=== PATIENT | female | born 1965 | race Two or more races ===

== ENCOUNTER 2016-07-22 16:37 | Emergency (ER) | payer OTHER ==
[~2016-07-22] VITALS: Ht 160 cm; Wt 95.7 kg
[~2016-07-22 16:37] MED LIST: ALB5IS NEB; ENA10T PO; FLUT250M2 IN; IPRA0.035 NEB; IPRASOL41 NEB; LEVO500T3 PO; METF-312 PO; PRED-188 PO
[2016-07-22 17:25] LABS: Basophils # (auto) 0.1 uL; Basophils % (auto) 0.5 % (0.0-2.0); Eosinophils # (auto) 0.3 uL; Eosinophils % (auto) 2.8 % (0.0-7.0); Hematocrit 44.9 % (36.0-46.0); Hemoglobin 15.1 g/dL (12.2-16.2); Lymphocytes # (auto) 3.5 uL; Lymphocytes % (auto) 34.4 % (10.0-50.0); Mean Corpuscular Hemoglobin 30.6 pg (28.0-32.0); Mean Corpuscular Hgb Conc. 33.7 g/dL (32.0-36.0); Mean Corpuscular Volume 90.8 fL (80.0-100.0); Mean Platelet Volume 9.1 fL (7.4-10.4); Monocytes # (auto) 0.8 uL; Monocytes % (auto) 8.3 % (0.0-12.0); Neutrophils # (auto) 5.5 uL; Platelet Count (auto) 288 10^3/uL (140-450); Red Cell Distribution Width 14.6 % (11.6-16.0); White Blood Cell 10.3 10^3/uL (4.4-10.8)
[2016-07-22 17:52] LABS: Albumin 4.1 g/dL (3.4-5.0); Alkaline Phosphatase 70 U/L (45-117); Anion Gap 11 (5-15); Aspartate Aminotransferase 26 U/L (15-37); Bilirubin, Total 0.5 mg/dL (0.2-1.0); Blood Urea Nitrogen 16 mg/dL (7-18); Calcium 9.1 mg/dL (8.5-10.1); Carbon Dioxide 23 mmol/L (21-32); Chloride 108 mmol/L (98-107); GFR African American 98 mL/min; GFR Non-African American 81 mL/min; Glucose 99 mg/dL (74-106); Potassium 3.7 mmol/L (3.5-5.1); Sodium 142 mmol/L (136-145); Total Protein 7.8 g/dL (6.4-8.2)
[2016-07-22 19:44] LABS: Urine Blood Negative /uL (Negative); Urine Ca Oxalate Crystal FEW (None Seen); Urine Color Yellow (Yellow); Urine Glucose Normal (Normal); Urine Ketone TRACE (Negative); Urine Mucus FEW (None Seen); Urine Nitrite Negative (Negative); Urine RBC 7 /hpf (0 - 4); Urine Squamous Epithelial Cell FEW /hpf (<5)
[2016-07-22] MEDS ORDERED: SODIUM CHLORIDE 0.9% 500 ML IVB ONE (19:44)
[2016-07-22] MEDS ORDERED: ONDANSETRON HCL 4 MG/2 ML VIAL IV ONE (19:45)
[2016-07-22] MEDS ORDERED: MORPHINE SULFATE 4 MG/ML SYRG IV ONE (19:45)
[2016-07-22 19:46] VITALS: BP 148/99
[2016-07-22] MEDS ORDERED: IOHEXOL 300 MG/ML 100ML BOTTLE IJ ONE (19:54)
[2016-07-22 20:10] LABS: Urine Bilirubin Negative (Negative)
[2016-07-22 20:12] LABS: Magnesium 2.4 mg/dL (1.6-2.6)
== END 2016-07-22 21:35 | disposition home or self-care (01) ==
LOC: ER 16:39
DX: N39.0 Urinary tract infection, site not specified (principal); J45.909 Unspecified asthma, uncomplicated; E11.9 Type 2 diabetes mellitus without complications; I10 Essential (primary) hypertension; F17.210 Nicotine dependence, cigarettes, uncomplicated; Z98.890 Other specified postprocedural states
CPT/HCPCS: 36415; 74177; 80053; 81001; 82150; 83690; 83735; 84484; 85025; 93005; 94761; 96361; 96374; 99285; J2270; J2405; Q9967

== ENCOUNTER 2022-12-12 18:24 | Inpatient (IN) | payer MEDICAID, OTHER ==
[~2022-12-12] VITALS: Ht 160 cm; Wt 102.6 kg
[~2022-12-12 18:24] MED LIST changes: -ENA10T PO; +ENAL1TAB46 PO; -LEVO500T3 PO; +LEVO500T31 PO; -METF-312 PO; +METF-370 PO
[2022-12-12 18:44] VITALS: PULSE 115; RESP 30; O2SAT 93
[2022-12-12 19:12] LABS: Basophils # (auto) 0 10 ^3/uL (0-0.2); Basophils % (auto) 0.4 % (0.0-2.0); Eosinophils # (auto) 0 10 ^3/uL (0-0.8); Eosinophils % (auto) 0.2 % (0.0-7.0); Hematocrit 44.4 % (36.0-46.0); Lymphocytes # (auto) 0.8 10 ^3/uL (0.4-5.4); Lymphocytes % (auto) 8.2 % (10.0-50.0); Mean Corpuscular Hemoglobin 32.4 pg (28.0-32.0); Mean Corpuscular Hgb Conc. 33.7 g/dL (32.0-36.0); Mean Corpuscular Volume 96.1 fL (80.0-100.0); Monocytes # (auto) 0.9 10 ^3/uL (0-1.3); Monocytes % (auto) 8.8 % (0.0-12.0); Neutrophils # (auto) 8.3 10 ^3/uL (1.6-8.6); Neutrophils % (auto) 82.4 % (37.0-80.0); Nucleated Red Blood Cells % 0.2 %; Red Blood Cells 4.62 10^6/uL (4.0-5.20); Red Cell Distribution Width 13.6 % (11.8-14.3); White Blood Cell 10.1 10^3/uL (4.4-10.8)
[2022-12-12 19:25] VITALS: PULSE 97; RESP 23; O2SAT 92
[2022-12-12] MEDS ORDERED: guaiFENesin-CODEINE Liq 5 ML UD PO ONE (20:00)
[2022-12-12 20:26] LABS: COVID19 ANTIGEN SOFIA FIA NEGATIVE (NEGATIVE)
[2022-12-12 20:30] LABS: Rapid Influenza A Negative (Negative); Rapid Influenza B Negative (Negative)
[2022-12-12] MEDS ORDERED: ALBUTEROL SULF 2.5 MG/0.5ML(0.5%) NEB SOLN NEB ONE (21:00)
[2022-12-12] MEDS ORDERED: DexAMETHasone SOD PHOS 10MG/1ML VIAL INJ IV ONE (21:00)
[2022-12-12] MEDS ORDERED: IPRATROPIUM BROM 0.5 MG/2.5ML INH SOL NEB ONE (21:00)
[2022-12-12] MEDS ORDERED: ONDANSETRON HCL 4 MG/2 ML VIAL IV ONE (21:45)
[2022-12-12] MEDS ORDERED: MORPHINE SULFATE 4 MG/ML SYR/VIAL IV ONE (21:45)
[2022-12-13] VITALS (9 sets, daily range): PULSE 61–84; RESP 14–33; O2SAT 94–99
[2022-12-13] MEDS ORDERED: DEXTROSE (50%) 50ML SYRG IV PRN (02:00)
[2022-12-13 02:05] LABS: Alanine Aminotransferase 111 U/L (7-40); Alkaline Phosphatase 72 U/L (46-116); Anion Gap 18 (5-15); BUN/Creatinine Ratio 19.8 (10.0-20.0); Blood Urea Nitrogen 19 mg/dL (9-23); Calcium 9.3 mg/dL (8.7-10.4); Carbon Dioxide 17 mmol/L (20-30); Chloride 103 mmol/L (98-107); Glucose 140 mg/dL (74-106); Potassium 3.8 mmol/L (3.5-5.1); Sodium 138 mmol/L (136-145)
[2022-12-13 02:07] LABS: Aspartate Aminotransferase 107 U/L (13-40); Bilirubin, Total 0.4 mg/dL (0.2-1.0); Total Protein 7.4 g/dL (5.7-8.2)
[2022-12-13 02:37] LABS: Albumin 4.9 g/dL (3.2-4.8)
[2022-12-13] MEDS ORDERED: HYDROcodone-ACET 5/325MG TAB PO PRN (04:30)
[2022-12-13] MEDS ORDERED: ACETAMINOPHEN 325 MG TAB PO PRN (04:30)
[2022-12-13] MEDS ORDERED: hydrALAZINE HCL 10 MG TAB PO PRN (04:30)
[2022-12-13 04:52] LABS: Urine Bacteria MOD /hpf (None Seen); Urine Blood Negative /uL (Negative); Urine Clarity HAZY (Clear); Urine Color Yellow (Yellow); Urine Hyaline Cast MANY /lpf (0 - 2); Urine Mucus FEW (None Seen); Urine Protein, UAD 1+ (Negative); Urine WBC 8 /hpf (0 - 5); Urine pH 5.5 (5.0-8.0)
[2022-12-13] MEDS: LEVALBUTEROL HCL 1.25 MG/3 ML NEB NEB SCH ×3 (06:29→19:11)
[2022-12-13] MEDS: IPRATROPIUM BROM 0.5 MG/2.5ML INH SOL NEB SCH ×3 (06:29→19:11)
[2022-12-13] MEDS: ACCU-CHEK COMFORT CURVE STRIP VI SCH ×4 (06:32→22:00)
[2022-12-13] MEDS: InsuLIN REG 1unit/0.01ml Soln (100units/ml) SC SCH ×4 (06:33→22:00)
[2022-12-13 07:28] LABS: Amphetamine Screen, Urine Neg (NEGATIVE); Barbiturate Scree,Urine Neg (NEGATIVE); Benzodiazephine Screen, Urine Neg (NEGATIVE); Cannabinoid Screen, Urine Neg (NEGATIVE); Cocaine Screen, Urine Neg (NEGATIVE); Opiate Scree,Urine Pos (NEGATIVE); Phencyclidine Screen, Urine Neg (NEGATIVE)
[2022-12-13] MEDS: METOPROLOL SUCCINATE XL 50 MG TAB PO SCH (10:03)
[2022-12-13] MEDS: methylPREDNISolone SOD SUCC 40 MG/ML VL IV SCH ×2 (10:06→23:47)
[2022-12-13 11:16] LABS: LDL Cholesterol 128 mg/dL (< 100); Triglycerides 94 mg/dL (< 150)
[2022-12-13 11:18] LABS: Cholesterol 197 mg/dL (< 200); HDL Cholesterol 61 mg/dL (40-59)
[2022-12-13] MEDS: ONDANSETRON HCL 4 MG/2 ML VIAL IV PRN ×2 (15:14→23:48)
[2022-12-13] MEDS ORDERED: PANT40TA2 PO (22:20)
[2022-12-13] MEDS ORDERED: LOSA100T58 PO (22:21)
[2022-12-13] MEDS ORDERED: ALBUTEROL SULF 2.5 MG/0.5ML(0.5%) NEB SOLN NEB PRN (23:45)
[2022-12-13] MEDS: ATORVASTATIN 20 MG TAB PO SCH (23:48)
[2022-12-14] VITALS (20 sets, daily range): BP systolic 110–156; BP diastolic 59–73; PULSE 58–74; RESP 16–20; TEMP 97.6–98; O2SAT 93–100
[2022-12-14] MEDS: IPRATROPIUM BROM 0.5 MG/2.5ML INH SOL NEB SCH ×7 (00:14→22:28)
[2022-12-14] MEDS: LEVALBUTEROL HCL 1.25 MG/3 ML NEB NEB SCH ×5 (00:14→22:28)
[2022-12-14] MEDS: ACCU-CHEK COMFORT CURVE STRIP VI SCH ×4 (07:00→22:08)
[2022-12-14] MEDS: InsuLIN REG 1unit/0.01ml Soln (100units/ml) SC SCH ×4 (07:03→22:02)
[2022-12-14] MEDS ORDERED: ADENOSINE 76 MG in GIVE UN-DILUTED 0 ML IV STA (07:43)
[2022-12-14] MEDS: methylPREDNISolone SOD SUCC 40 MG/ML VL IV SCH ×4 (11:30→22:02)
[2022-12-14] MEDS: ASPirin 81 mg TAB PO SCH (11:30)
[2022-12-14] MEDS: METOPROLOL SUCCINATE XL 50 MG TAB PO SCH (11:30)
[2022-12-14] MEDS: ALBUTEROL SULF 2.5 MG/0.5ML(0.5%) NEB SOLN NEB SCH ×2 (13:00→14:00)
[2022-12-14] MEDS: PIPERACILLIN-TAZOB 3.375GM 100 ML IV SCH (18:52)
[2022-12-14] MEDS: FAMOTIDINE 20 MG TAB PO SCH (21:24)
[2022-12-14] MEDS: ATORVASTATIN 20 MG TAB PO SCH (22:08)
[2022-12-15] VITALS (19 sets, daily range): BP systolic 118–166; BP diastolic 58–101; PULSE 57–100; RESP 12–22; TEMP 97.8–98.7; O2SAT 93–100
[2022-12-15] MEDS: PIPERACILLIN-TAZOB 3.375GM 100 ML IV SCH ×4 (00:39→17:09)
[2022-12-15] MEDS: IPRATROPIUM BROM 0.5 MG/2.5ML INH SOL NEB SCH ×6 (01:56→22:16)
[2022-12-15] MEDS: ALBUTEROL SULF 2.5 MG/0.5ML(0.5%) NEB SOLN NEB SCH (01:56)
[2022-12-15] MEDS: methylPREDNISolone SOD SUCC 40 MG/ML VL IV SCH ×3 (06:07→22:01)
[2022-12-15] MEDS: InsuLIN REG 1unit/0.01ml Soln (100units/ml) SC SCH ×4 (06:09→22:05)
[2022-12-15] MEDS: ACCU-CHEK COMFORT CURVE STRIP VI SCH ×4 (06:14→22:02)
[2022-12-15] MEDS: LEVALBUTEROL HCL 1.25 MG/3 ML NEB NEB SCH ×4 (06:18→22:18)
[2022-12-15] MEDS: ASPirin 81 mg TAB PO SCH (09:22)
[2022-12-15] MEDS: METOPROLOL SUCCINATE XL 50 MG TAB PO SCH (09:23)
[2022-12-15] MEDS: FAMOTIDINE 20 MG TAB PO SCH ×2 (09:23→22:01)
[2022-12-15] MEDS: ATORVASTATIN 20 MG TAB PO SCH (22:01)
[2022-12-15] MEDS ORDERED: MELATONIN 5 MG TAB PO ONE (23:00)
[2022-12-16] VITALS (18 sets, daily range): BP systolic 128–159; BP diastolic 61–75; PULSE 56–77; RESP 16–22; TEMP 97.6–98.9; O2SAT 92–100
[2022-12-16] MEDS: PIPERACILLIN-TAZOB 3.375GM 100 ML IV SCH ×3 (01:59→17:34)
[2022-12-16] MEDS: IPRATROPIUM BROM 0.5 MG/2.5ML INH SOL NEB SCH ×6 (02:30→22:10)
[2022-12-16] MEDS: LEVALBUTEROL HCL 1.25 MG/3 ML NEB NEB SCH ×6 (02:31→22:10)
[2022-12-16] MEDS: methylPREDNISolone SOD SUCC 40 MG/ML VL IV SCH ×3 (06:17→22:05)
[2022-12-16] MEDS: InsuLIN REG 1unit/0.01ml Soln (100units/ml) SC SCH ×4 (06:18→22:11)
[2022-12-16] MEDS: ACCU-CHEK COMFORT CURVE STRIP VI SCH ×5 (06:22→22:06)
[2022-12-16] MEDS: ASPirin 81 mg TAB PO SCH (09:03)
[2022-12-16] MEDS: FAMOTIDINE 20 MG TAB PO SCH ×2 (09:04→22:05)
[2022-12-16] MEDS: METOPROLOL SUCCINATE XL 50 MG TAB PO SCH (09:04)
[2022-12-16] MEDS: ACETYLCYSTEINE 20%(200MG/ML) SOL 4ML NEB SCH ×2 (14:44→22:10)
[2022-12-16 15:57] LABS: Hematocrit 41.5 % (36.0-46.0); Hemoglobin 13.7 g/dL (12.2-16.2); Mean Corpuscular Hemoglobin 32.2 pg (28.0-32.0); Mean Corpuscular Volume 97.6 fL (80.0-100.0); Red Blood Cells 4.26 10^6/uL (4.0-5.20); Red Cell Distribution Width 12.8 % (11.8-14.3); White Blood Cell 11.9 10^3/uL (4.4-10.8)
[2022-12-16 16:05] LABS: Basophils % (manual) 0 (0.0-2.0); Blast Cells 0; Eosinophils % (manual) 0 (0-7); Metamyelocytes % 0; Myelocytes % 0; Promyelocytes % 0; Reactive Lymphocytes 0
[2022-12-16 16:19] LABS: Alanine Aminotransferase 64 U/L (7-40); Albumin 4.6 g/dL (3.2-4.8); Alkaline Phosphatase 57 U/L (46-116); Anion Gap 3 (5-15); Aspartate Aminotransferase 31 U/L (13-40); BUN/Creatinine Ratio 32.5 (10.0-20.0); Blood Urea Nitrogen 27 mg/dL (9-23); Calcium 8.7 mg/dL (8.7-10.4); Carbon Dioxide 29 mmol/L (20-30); Chloride 106 mmol/L (98-107); Glucose 103 mg/dL (74-106); Potassium 4.3 mmol/L (3.5-5.1); Sodium 138 mmol/L (136-145)
[2022-12-16 16:20] LABS: Bilirubin, Total 0.3 mg/dL (0.2-1.0); Total Protein 6.5 g/dL (5.7-8.2)
[2022-12-16 16:29] LABS: Band Neutrophils % (manual) 3; Lymphocytes % (manual) 15 (10.0-50.0); Monocytes % (manual) 9 (0-12); Platelet Estimate Adequate; RBC Morphology Normal
[2022-12-16] MEDS ORDERED: MELATONIN 5 MG TAB PO SCH (22:00)
[2022-12-16] MEDS: ATORVASTATIN 20 MG TAB PO SCH (22:04)
[2022-12-17] VITALS (11 sets, daily range): BP systolic 135–152; BP diastolic 80–85; PULSE 58–80; RESP 16–20; TEMP 36.9; O2SAT 93–99
[2022-12-17] MEDS: IPRATROPIUM BROM 0.5 MG/2.5ML INH SOL NEB SCH ×4 (02:00→14:08)
[2022-12-17] MEDS: LEVALBUTEROL HCL 1.25 MG/3 ML NEB NEB SCH ×4 (02:00→14:08)
[2022-12-17] MEDS: PIPERACILLIN-TAZOB 3.375GM 100 ML IV SCH ×2 (02:22→09:30)
[2022-12-17] MEDS: ACCU-CHEK COMFORT CURVE STRIP VI SCH ×3 (06:15→17:00)
[2022-12-17] MEDS: methylPREDNISolone SOD SUCC 40 MG/ML VL IV SCH ×2 (06:15→14:31)
[2022-12-17] MEDS: InsuLIN REG 1unit/0.01ml Soln (100units/ml) SC SCH ×3 (06:22→17:00)
[2022-12-17 06:37] LABS: Basophils # (auto) 0 10 ^3/uL (0-0.2); Basophils % (auto) 0.5 % (0.0-2.0); Eosinophils # (auto) 0 10 ^3/uL (0-0.8); Hematocrit 41.7 % (36.0-46.0); Hemoglobin 13.9 g/dL (12.2-16.2); Lymphocytes # (auto) 1.3 10 ^3/uL (0.4-5.4); Lymphocytes % (auto) 12.6 % (10.0-50.0); Mean Corpuscular Hgb Conc. 33.3 g/dL (32.0-36.0); Mean Corpuscular Volume 96.3 fL (80.0-100.0); Monocytes # (auto) 0.6 10 ^3/uL (0-1.3); Monocytes % (auto) 5.7 % (0.0-12.0); Neutrophils # (auto) 8.4 10 ^3/uL (1.6-8.6); Neutrophils % (auto) 81.2 % (37.0-80.0); Red Blood Cells 4.33 10^6/uL (4.0-5.20); Red Cell Distribution Width 12.8 % (11.8-14.3); White Blood Cell 10.3 10^3/uL (4.4-10.8)
[2022-12-17 06:47] LABS: Alanine Aminotransferase 66 U/L (7-40); Albumin 4.5 g/dL (3.2-4.8); Alkaline Phosphatase 52 U/L (46-116); Anion Gap 3 (5-15); Aspartate Aminotransferase 29 U/L (13-40); BUN/Creatinine Ratio 30.4 (10.0-20.0); Bilirubin, Total 0.4 mg/dL (0.2-1.0); Blood Urea Nitrogen 24 mg/dL (9-23); Calcium 8.7 mg/dL (8.7-10.4); Carbon Dioxide 31 mmol/L (20-30); Chloride 105 mmol/L (98-107); Glucose 143 mg/dL (74-106); Magnesium 2.1 mg/dL (1.6-2.6); Potassium 4.2 mmol/L (3.5-5.1); Sodium 139 mmol/L (136-145); Total Protein 6.3 g/dL (5.7-8.2)
[2022-12-17] MEDS: ACETYLCYSTEINE 20%(200MG/ML) SOL 4ML NEB SCH ×2 (06:49→14:08)
[2022-12-17] MEDS: FAMOTIDINE 20 MG TAB PO SCH (09:31)
[2022-12-17] MEDS: METOPROLOL SUCCINATE XL 50 MG TAB PO SCH (09:31)
[2022-12-17] MEDS: ASPirin 81 mg TAB PO SCH (09:31)
[2022-12-17] MEDS ORDERED: METH4PAK PO (14:38)
[2022-12-17] MEDS ORDERED: METO-6 PO (14:38)
[2022-12-17] MEDS ORDERED: AUG875T PO (14:38)
[2022-12-17] MEDS ORDERED: ALB5IS NEB (14:38)
[2022-12-17] MEDS ORDERED: IPR002IS HHN (14:38)
[2022-12-17] MEDS ORDERED: NEBU1MIS48 XX (14:41)
== END 2022-12-17 16:55 | disposition home or self-care (01) | DRG 133 ==
LOC: EDBD 18:24 → ER 18:24 → TELE 12-13 04:29 → TELE-CENTR 12-13 20:32
PROVIDERS: ADMIT Nurse Practitioner Family; ATTEND Internal Medicine
DX: J96.01 Acute respiratory failure with hypoxia (principal); J44.0 Chronic obstructive pulmonary disease with (acute) lower respiratory infection; I47.1 Supraventricular tachycardia; J45.901 Unspecified asthma with (acute) exacerbation; J44.1 Chronic obstructive pulmonary disease with (acute) exacerbation; J20.9 Acute bronchitis, unspecified; E11.9 Type 2 diabetes mellitus without complications; E66.9 Obesity, unspecified; I10 Essential (primary) hypertension; N39.0 Urinary tract infection, site not specified; Z20.822 Contact with and (suspected) exposure to COVID-19; Z68.41 Body mass index [BMI] 40.0-44.9, adult; Z79.84 Long term (current) use of oral hypoglycemic drugs; Z80.0 Family history of malignant neoplasm of digestive organs; Z80.1 Family history of malignant neoplasm of trachea, bronchus and lung; Z80.3 Family history of malignant neoplasm of breast; Z80.41 Family history of malignant neoplasm of ovary; Z80.8 Family history of malignant neoplasm of other organs or systems; Z81.8 Family history of other mental and behavioral disorders; Z82.0 Family history of epilepsy and other diseases of the nervous system; Z82.3 Family history of stroke; Z82.49 Family history of ischemic heart disease and other diseases of the circulatory system; Z82.5 Family history of asthma and other chronic lower respiratory diseases; Z82.62 Family history of osteoporosis; Z83.3 Family history of diabetes mellitus
CPT/HCPCS: 36415; 71045; 78452; 80053; 80061; 80307; 81001; 82962; 83036; 83735; 83880; 84443; 84484; 85007; 85025; 85027; 85379; 87426; 87804; 93005; 93017; 93306; 94640; 96374; 96375; G0378; J0153; J1100; J1815; J2405; J2543

== ENCOUNTER 2023-01-11 18:52 | Emergency (ER) | payer MEDICAID ==
[~2023-01-11] VITALS: Ht 167.6 cm; Wt 108.8 kg
[~2023-01-11 18:52] MED LIST changes: +AUG875T PO; -ENAL1TAB46 PO; +IPR002IS HHN; -IPRA0.035 NEB; -IPRASOL41 NEB; -LEVO500T31 PO; +LOSA100T58 PO; -METF-370 PO; +METH4PAK PO; +METO-6 PO; +NEBU1MIS48 XX; +PANT40TA2 PO; -PRED-188 PO
[2023-01-11 19:31] LABS: Urine WBC None Seen /hpf (0 - 5)
[2023-01-11 19:33] VITALS: BP 157/99; PULSE 98; RESP 14; O2SAT 98
[2023-01-11 19:52] LABS: Urine Bacteria NONE SEEN /hpf (None Seen); Urine Blood Negative /uL (Negative); Urine Clarity Clear (Clear); Urine Color Colorless (Yellow); Urine Protein, UAD Negative (Negative); Urine Specific Gravity 1.004 (1.001-1.035); Urine Urobilinogen Normal (Negative); Urine pH 5.5 (5.0-8.0)
== END 2023-01-11 20:58 | disposition left against medical advice (07) ==
LOC: ER 18:52 → EDBD 18:52 → ER 20:58
DX: F10.10 Alcohol abuse, uncomplicated (principal); Z53.21 Procedure and treatment not carried out due to patient leaving prior to being seen by health care provider
CPT/HCPCS: 81001

== ENCOUNTER 2025-01-29 06:07 | Inpatient (IN) | payer MEDICAID ==
[2025-01-29] VITALS (21 sets, daily range): BP systolic 106–149; BP diastolic 55–82; PULSE 54–97; RESP 12–20; TEMP 97.5–98; O2SAT 92–99
[~2025-01-29] VITALS: Ht 160 cm; Wt 96.5 kg
[~2025-01-29 06:07] MED LIST changes: -ALB5IS NEB; -AUG875T PO; +BUDE1AER4 IN; -FLUT250M2 IN; -IPR002IS HHN; +LOSA100T33 PO; -LOSA100T58 PO; -METH4PAK PO; -METO-6 PO; -NEBU1MIS48 XX; -PANT40TA2 PO
[2025-01-29] MEDS ORDERED: ONDANSETRON HCL 4 MG/2 ML VIAL IV PRN ×2 (06:45→08:15)
[2025-01-29] MEDS ORDERED: HYDROmorphone HCL 2 MG/ML VL/or syr IV PRN ×3 (06:45→08:47)
[2025-01-29] MEDS ORDERED: MORPHINE SULFATE INJ 2 MG/ml SYRG IV PRN (06:45)
[2025-01-29] MEDS ORDERED: NITROGLYCERIN 0.4 MG SL TAB SL PRN (06:45)
[2025-01-29] MEDS ORDERED: ceFAZolin 2 GM/D5W50ml 50 ML IV ONE (07:05)
[2025-01-29] MEDS: ACETAMINOPHEN IV 1000 MG/100ML (10MG/ML) IV ONE (07:10)
[2025-01-29] MEDS: CELECOXIB 100 MG CAP PO ONE (07:10)
[2025-01-29] MEDS: PREGABALIN CAPSULE 75 MG CAP PO ONE (07:11)
[2025-01-29] MEDS ORDERED: MORPHINE SULF PF 5 MG/10 ML VIAL ONE ×2 (08:10→08:24)
[2025-01-29] MEDS ORDERED: BUPIVACAINE 0.25% INJ 50ML VIAL ONE (08:11)
[2025-01-29] MEDS ORDERED: MORPHINE SULFATE 4 MG/ML SYR/VIAL IV PRN (08:15)
[2025-01-29] MEDS ORDERED: TETRACAINE 1% INJ 2 ML VIAL IJ ONE (08:15)
[2025-01-29] MEDS ORDERED: TRANEXAMIC ACID 20 ML ONE (08:15)
[2025-01-29] MEDS ORDERED: hydrALAZINE HCL 20 MG/ML VL IV PRN (08:15)
[2025-01-29] MEDS ORDERED: diphenhydrAMINE HCL 50 MG/1 ML VL IV PRN (08:15)
[2025-01-29] MEDS ORDERED: CEFEPIME 1GM/50ML 50 ML IV ONE (08:15)
[2025-01-29] MEDS ORDERED: MIDAZOLAM HCL 2MG/2ML 2ml VIAL (1mg/ml) IV PRN (08:15)
[2025-01-29] MEDS ORDERED: MIDAZOLAM HCL 2MG/2ML 2ml VIAL (1mg/ml) ONE (08:25)
[2025-01-29] MEDS ORDERED: fentaNYL CITRATE 100 MCG/2 ML VL ONE (08:25)
[2025-01-29] MEDS ORDERED: VANCOMYCIN HCL 1000 MG VL ONE (08:38)
[2025-01-29] MEDS ORDERED: ROPIVACAINE 0.5% (5MG/ML) 20ML AMPULE IJ ONE (09:18)
[2025-01-29] MEDS ORDERED: PROPOFOL 10 MG/ML 20 ML IV ONE (09:18)
[2025-01-29] MEDS ORDERED: ACETAMINOPHEN IV 1000 MG/100ML (10MG/ML) IV ONE (09:56)
[2025-01-29] MEDS ORDERED: LOSARTAN POTASSIUM 25 MG TAB PO SCH (10:00)
[2025-01-29] MEDS ORDERED: hydroCHLOROthiazide 25 MG TAB PO SCH (10:00)
--- NOTE | 2025-01-29 10:42 | DVHINCON2 ---
Date Seen: Jan 29, [address] LEYVA Family History: Alcoholism Cancer Family history: Arthritis Family history: Asthma Family history: Diabetes mellitus Family history: Hypertension Seizure disorder (situation) No Family History of: Cancer of colon Chronic obstructive lung disease (situation) Family history: Alzheimer's disease Family history: Autoimmune disease (situation) Family history: Blood disorder Family history: Cardiovascular disease Family history: Congenital anomaly Family history: Coronary thrombosis Family history: Depression (situation) Family history: Diabetes in Family history: Glaucoma Family history: Hypercholesterolemia (situation) Family history: Osteoporosis Family history: Suicide (situation) Family history: Thyroid disorder Ischemic heart disease Malignant melanoma Malignant neoplasm of breast Malignant neoplasm of lung Malignant neoplasm of ovary Prostate cancer Renal stone Stroke Allergies: Coded Allergies: NO KNOWN ALLERGIES (Unverified , 10/12/09) Home Meds Reported Medications Budesonide-Formoterol Fumarate (Budesonide/Formoterol Fum 160-4.5 Mcg/Act) 1 Aer Aer, IN, AER 01/25/25 Losartan Potassium & Hydrochlo (Losartan Potassium/Hydroc) 1 Tab Tab, PO, TAB 01/25/25 Current Medications Current Medications Medications (Trade) Dose Ordered Sig/Juli Route PRN Reason Start Time Stop Time Status Last Admin Losartan Potassium (Cozaar Tablet) 25 mg DAILY PO 01/29/25 10:00 01/29/25 10:38 DC Hydrochlorothiazide (hydroCHLOROthiazide TABLET) 12.5 mg DAILY PO 01/29/25 10:00 01/29/25 10:38 DC Lactated Ringer's 1,000 ml @ 100 mls/hr Q10H IV 01/29/25 06:45 Sodium Chloride (Saline Lock Ns) 10 ml Q8HR IV 01/29/25 14:00 Cefazolin Sodium 50 ml @ 50 mls/hr Q6H IV 01/29/25 06:45 01/29/25 19:44 Acetaminophen/ Hydrocodone Bitart (Eve[place]th 5/325MG Tab) 1 tab Q4HP PRN PO MODERATE PAIN (4-6 PAIN SCALE) 01/29/25 06:45 Hydromorphone HCl (Dilaudid Injection) 1 mg Q2HP PRN IV SEVERE PAIN (7-10 PAIN SCALE) 01/29/25 06:45 01/29/25 08:26 DC Ondansetron HCl (Zofran) 4 mg Q6HP PRN IV NAUSEA / VOMITING 01/29/25 06:45 Cancel Docusate Sodium (Colace Capsule) 100 mg Q12HR PO 01/29/25 10:00 Nitroglycerin (Ntrostat Sublingual) 0.4 mg Q5MINP PRN SL FOR CHEST PAIN 01/29/25 06:45 Morphine Sulfate 2 mg Q30M PRN IV FOR CHEST PAIN 01/29/25 06:45 Cefepime HCl 50 ml @ 12.5 mls/hr DAILY IV 01/29/25 10:00 Aspirin (Ecotrin Enteric Coated Tablet) 81 mg BID PO 01/30/25 07:00 Diphenhydramine HCl (Benadryl Injection) 25 mg Q4HP PRN IV FOR ITCHING 01/29/25 08:15 Ondansetron HCl (Zofran) 4 mg Q4HP PRN IV NAUSEA / VOMITING 01/29/25 08:15 Hydromorphone HCl (Dilaudid Injection) 0.5 mg Q15M PRN IV SEVERE PAIN (7-10 PAIN SCALE) 01/29/25 08:15 01/29/25 08:46 DC Ondansetron HCl (Zofran) 4 mg ONCE PRN IV NAUSEA / VOMITING 01/29/25 08:15 01/29/25 08:22 DC Hydralazine HCl (Apresoline Injection) 5 mg Q10M PRN IV SBP>160 01/29/25 08:15 01/29/25 09:06 DC Morphine Sulfate 2 mg Q2HPRN PRN IV BREAKTHROUGH PAIN (7-10) 01/29/25 08:15 01/29/25 08:22 DC Midazolam HCl (Versed Injection) 1 mg Q10M PRN IV ANXIETY 01/29/25 08:15 01/29/25 08:56 DC Hydromorphone HCl (Dilaudid Injection) 1 mg Q2HP PRN IV SEVERE PAIN (7-10 PAIN SCALE) 01/29/25 08:47 01/29/25 10:38 DC Vital Signs Vital Signs Date Time Temp Pulse Resp B/P (MAP) Pulse Ox O2 Delivery O2 Flow Rate FiO2 01/29/25 06:19 97.5 74 16 133/75 (94 93 97.5 Plan discussed with: Patient Date of Service: Jan 29, 2025 Billing Provider: URMILA TOBIN MD Common Visit Codes: [id number] INP/OBS CARE (HIGH) Secondary Visit Codes: 33710-ZRLEO CHNG SMOKING >10MIN URMILA TOBIN MD Jan 29, 2025 10:42
[2025-01-29] MEDS ORDERED: ALBUTEROL SULF 2.5 MG/0.5ML(0.5%) NEB SOLN NEB PRN (10:45)
--- NOTE | 2025-01-29 10:48 | DVH ---
CLINICAL INDICATION: pain; S/P SURGERY TECHNIQUE: 3 radiographic views of the right knee were obtained. Comparison: XR KNEE RIGHT 3 VIEW on DOS: 08/08/24, CR KNEE RIGHT 3 VIEW on DOS: 01/05/24 FINDINGS/IMPRESSION: There is no evidence of acute fracture or dislocation. Postsurgical changes from right knee arthroplasty.
--- NOTE | 2025-01-29 10:56 | DVHINCON2 ---
DATE OF CONSULTATION: 01/29/2025 INTERNAL MEDICINE CONSULT HISTORY OF PRESENT ILLNESS: The patient is a 59-year-old lady who is admitted after she underwent surgery on the right knee for DJD of the knee. The patient at this time denies any significant pain. No chest pain, no shortness of breath, no nausea or vomiting. REVIEW OF SYSTEMS: Review of the rest of the systems are otherwise currently negative. PAST MEDICAL HISTORY: Significant for hypertension, COPD/asthma, and sleep apnea. MEDICATIONS: She takes losartan, hydrochlorothiazide, and inhalers. ALLERGIES: No known drug allergies. SOCIAL HISTORY: She smokes cigarettes. Lives at home with her daughter. FAMILY HISTORY: Family history is negative. PHYSICAL EXAMINATION: GENERAL: The patient is awake, alert. VITAL SIGNS: Temperature of 97.5, pulse 74 per minute, blood pressure is 133/75. SHEENT: Unremarkable. NECK: There is no JVD. No pedal edema. LUNGS: Equal bilaterally. No added sounds. CARDIOVASCULAR: S1 and S2 is regular, no murmurs. ABDOMEN: Soft. There is no organomegaly. NEUROLOGIC: Nonfocal. MUSCULOSKELETAL: The right knee is currently in a dressing. ASSESSMENT AND PLAN: * Hypertension for which her blood pressure will be monitored. * Obesity. * Sleep apnea for which she will be placed on a CPAP at night. * Tobacco abuse for which the patient has been advised to quit smoking and a nicotine patch will be placed- time spent was 11 mins * COPD/asthma for which she will be placed on p.r.n. albuterol. * Status post right knee surgery for DJD of the knee for which she will be placed on pain medication and receive physical therapy. MD TAD Ko/EKT TID: [id number] RECEIPT: [id number] MICHAEL
[2025-01-29] MEDS: ceFAZolin 1GM/50ML 50 ML IV SCH (11:31)
[2025-01-29] MEDS: DOCUSATE SOD 100 MG CAP PO SCH (11:32)
[2025-01-29] MEDS: SODIUM CHLOR 0.9% PF (SALINE LOCK) 10ML VIAL/SYR IV SCH (13:15)
[2025-01-29] MEDS: CEFEPIME 1GM/50ML 50 ML IV SCH (13:15)
[2025-01-29] MEDS: NICOTINE 21MG/24 HR TOPICAL PATCH TD ONE (13:15)
[2025-01-29] MEDS: LACTATED RINGER'S 1,000 ML IV SCH (16:52)
[2025-01-29] MEDS: LOSARTAN POTASSIUM 50 MG TAB PO ONE (21:18)
[2025-01-29] MEDS: HYDROcodone-ACET 5/325MG TAB PO PRN (21:22)
[2025-01-30] VITALS (32 sets, daily range): BP systolic 97–148; BP diastolic 48–88; PULSE 62–95; RESP 17–20; TEMP 97.3–98.6; O2SAT 93–99
[2025-01-30] MEDS: ASPirin-EC 81 mg tab PO SCH (06:46)
[2025-01-30 07:24] LABS: Hematocrit 35.8 % (36.0-46.0); Hemoglobin 12.3 g/dL (12.2-16.2); Mean Corpuscular Hemoglobin 33.1 pg (28.0-32.0); Mean Corpuscular Volume 96.3 fL (80.0-100.0); Nucleated Red Blood Cells % 0.0 %
[2025-01-30 07:44] LABS: Alanine Aminotransferase 14 U/L (7-40); Albumin 4.3 g/dL (3.2-4.8); Anion Gap 9 (5-15); BUN/Creatinine Ratio 27.7 (10.0-20.0); Bilirubin, Total 0.7 mg/dL (0.2-1.0); Blood Urea Nitrogen 18 mg/dL (9-23); Carbon Dioxide 26 mmol/L (20-31); Chloride 107 mmol/L (98-107); Glucose 101 mg/dL (74-106); Sodium 142 mmol/L (136-145); Total Protein 6.5 g/dL (5.7-8.2)
[2025-01-30 07:45] LABS: Alkaline Phosphatase 46 U/L (46-116); Calcium 8.7 mg/dL (8.7-10.4); Potassium 3.4 mmol/L (3.5-5.1)
[2025-01-30] MEDS: NICOTINE 21MG/24 HR TOPICAL PATCH TD SCH (09:02)
--- NOTE | 2025-01-30 10:54 | DVHPN2 ---
Progress Note Date Seen: Jan 30, 2025 Medical Necessity Reason Pt with a Central, PICC or Fol: No Subjective Patient reports: No new complaints Review of Systems: HEENT:Normal, CVS:Normal, RESPIRATORY:Normal, GI:Normal, :Normal, MSK:Normal, NEURO:Normal Objective vital signs Vital Sign Date Time Temp Pulse Resp B/P (MAP) Pulse Ox O2 Delivery O2 Flow Rate FiO2 01/30/25 09:48 97.3 90 18 130/69 (89) 95 97.3 01/30/25 08:05 Nasal Cannula* 2 28 Total Intake and Output 01/29/25 01/29/25 01/30/25 15:00 23:00 07:00 Intake Total 50 ml 575 ml 750 ml Balance 50 ml 575 ml 750 ml medications Current Medications Medications Dose Ordered Sig/Juli Route Start Time Stop Time Status Last Admin Dose Admin Lactated Ringer's 1,000 ml @ 100 mls/hr Q10H IV 01/29/25 06:45 01/29/25 16:52 100 MLS/HR Sodium Chloride 10 ml Q8HR IV 01/29/25 14:00 01/30/25 06:00 10 ML Acetaminophen/ Hydrocodone Bitart 1 tab Q4HP PRN PO 01/29/25 06:45 01/30/25 06:46 1 TAB Ondansetron HCl 4 mg Q6HP PRN IV 01/29/25 06:45 Cancel Docusate Sodium 100 mg Q12HR PO 01/29/25 10:00 01/29/25 21:17 100 MG Nitroglycerin 0.4 mg Q5MINP PRN SL 01/29/25 06:45 Morphine Sulfate 2 mg Q30M PRN IV 01/29/25 06:45 Cefepime HCl 50 ml @ 12.5 mls/hr DAILY IV 01/29/25 10:00 01/30/25 08:54 12.5 MLS/HR Aspirin 81 mg BID PO 01/30/25 07:00 01/30/25 08:53 81 MG Diphenhydramine HCl 25 mg Q4HP PRN IV 01/29/25 08:15 Ondansetron HCl 4 mg Q4HP PRN IV 01/29/25 08:15 Hydromorphone HCl 1 mg Q3HP PRN IV 01/29/25 10:45 Albuterol 2.5 mg Q4HPRN PRN NEB 01/29/25 10:45 Nicotine 1 patch DAILY TD 01/30/25 10:00 01/30/25 09:02 1 PATCH Examination: GENERAL:Normal, HEENT:Normal, NECK:Normal, LUNGS:Normal, CVS:Normal, ABDOMEN:Normal, MSK:Normal, SKIN:Normal, NEURO:Normal, :Normal laboratory and microbiology Laboratory Tests 01/30/25 05:53 Test 01/30/25 05:53 Range/Units Serum Glucose 101 74-106 mg/dL Problem List/Assessment/Plan Problem List/Assessment/Plan * Hypertension for which her blood pressure will be monitored. * Obesity. * Sleep apnea for which she will be placed on a CPAP at night. * Tobacco abuse for which the patient has been advised to quit smoking and a nicotine patch will be placed - time spent was 11 mins * COPD/asthma for which she will be placed on p.r.n. albuterol, chest xray * Status post right knee surgery for DJD of the knee for which she will be placed on pain medication and receive physical therapy. advance care planning- full code- time spent 17 mins Plan discussed with: Patient My Orders My Orders Orders - URMILA TOBIN MD Procedure Category Date Status Time Lactated Ringers 1000 PHA 01/30/25 Verified mL 11:00 Discontinue Tele VANGIE 01/30/25 Verified 10:50 Transfer Orders XFER 01/30/25 Verified 10:50 * [employer] CONS 01/30/25 Verified Consult Potassium Er Tablet PHA 01/30/25 Verified (Klor-Con Tablet) 11:00 Basic Metabolic Panel LAB 01/31/25 Verified 06:00 Complete Blood Count LAB 01/31/25 Verified 06:00 Chest Portable XY 01/30/25 Verified 10:50 Date of Service: Jan 30, 2025 Billing Provider: URMILA TOBIN MD Common Visit Codes: [id number] INP/OBS CARE(HIGH) Secondary Visit Codes: [id number] CHNG SMOKING >10MIN, [id number] CARE PLAN 30 MINUTES URMILA TOBIN MD Jan 30, 2025 10:54
[2025-01-30] MEDS: LACTATED RINGER'S 1,000 ML IV SCH (11:00)
--- NOTE | 2025-01-30 12:12 | DVH ---
CHEST RADIOGRAPH Indication: copd Technique: XY CHEST PORTABLE Comparison: None FINDINGS: The cardiac silhouette is unremarkable. The lungs demonstrate left basilar airspace opacification. The pulmonary vasculature is mildly prominent. There is no pleural effusion. There is no pneumothorax. IMPRESSION: Mild pulmonary vascular congestion. Left basilar airspace opacities.
--- NOTE | 2025-01-30 12:53 | DVHOP2 ---
Operative Report - 2 Report Details Date: 01/29/25 Preop Diagnosis: Right knee osteoarthritis Postop Diagnosis: Right knee osteoarthritis Surgeon: Alex Leyva MD Music Historian: Arsen GUERIN Anesthesiologist: Alberto WILEY Anesthesia: Regional Implant: [employer] CR porous see implant log Consent: The patient was informed of the risks and benefits of the procedure. These include but are not limited to complications of anesthesia, postoperative infection, incomplete relief of symptoms, recurrence of symptoms, damage to blood vessels, nerves and tendons, deep venous thrombosis, pulmonary embolism and possible need for repeat surgery in the future. Estimated Blood Loss: 50 cc Name of Procedure Performed Right total knee arthroplasty using computer navigation Procedure Details Procedure Details: FINDINGS: Extensive degenerative disease with grade IV changes INDICATION: This patient has failed non-operative treatments for knee arthritis and is now indicated for a total knee replacement. Preoperatively in the waiting area as well as in the office, I had a long discussion with the patient reg arding the plan, the expected outcome, the risks, benefits, and alternatives of surgery. The risks include, but are not limited to, infection (which may require future surgery and removal of implants) , bleeding (which may require a transfusion), damage to nerves, arteries, veins, tendons, muscles and other adjacent structures. Also discussed the possibilities of intraoperative fra ctures, implant loosening, heterotopic bone formation, and revision for variety of reasons, and medical complications etc. This was discussed at length and consent has been obtained. DESCRIPTION OF PROCEDURE: In the preoperative holding area, the consent was reviewed and the appropriate extremity was verified by the patient and marked with my initials. The patient was then transferred to the operating theatre. Appropriate anesthesia was induced. All bony prominences were well padded. A time out was performed verifying the side and site of surgery according to standard protocol. Preoperative antibiotics were given 10 minutes prior to tourniquet inflation. Tranexamic acid was given. A well padded thigh tourniquet was applied. The extremity was then prepped and draped in the usual sterile fashion. The extremity was exsanguinated and the tourniquet was inflated. We then made a mid-line incision, which we continued to the underlying capsular tissue. We performed a medial parapatellar arthrotomy. We periosteally exposed the proximal tibia, excised the anterior fat pad and synovium from the distal aspect of the femur. We then subluxed the patella and brought the knee up into flexion. The lateral meniscus, ACL were released. We used the appropriate guid e with attached computer navigation to secure the distal femoral cutting block to the femur with pins and completed the distal femoral cut in 0 degrees to the mechanical axis with an oscillating saw. We removed the distal femoral cutting block and turned our attention to the tibia. We used the extramedullary tibial alignment guide with computer navigation to secure the proximal tibial cutting block to the tibia with pins, setting it for a 2 mm cut from the more involved side, and completed the proximal tibial cut. We then used the spacer block and alignment sagar to check the varus-valgus angle of our cuts and the extension gap. The knee was then balanced in extension to varus/valgus stress. We marked our femoral anatomy, including Eastland's line and the epicondylar axis. Using that as a rotational guide, we used the sizing guide to size our femur properly, using a stylus to ensure there would be no notching. We then used the AP cutting guide to make our anterior and posterior cuts and chamfer cuts with an oscillating saw. We again checked the flexion and extension gaps and coronal balancing. Next, we sized our tibia and secured a baseplate with appropriate rotation with pins. We placed a trial femur in position and completed preparation of the notch with reamers and box osteotome and placed a trial notch in position. We used trials to choose our liner size and then placed the liner in place and reduced the knee. We used an oscillating saw to resurface the patella, and used a guide to choose the button size and completed patella preparation with the drill. We then placed a trial button in place. At this point, we checked our seven parameters: 1) Limb alignment 2) Extension 3) Flexion against gravity 4) Flexion stability 5) Varus-valgus balancing 6) Component rotation 7) Patella tracking We were satisfied with these and removed all trials with the exception of the baseplate. We completed preparation of the tibia with the appropriate reamer and keel impactor and then removed the baseplate. We placed a bone plug in the distal femur and then irrigated and dried all bony surfaces and injected our pain cocktail. We impacted our tibial and patellar components into position. I then cemented femur component as there was softening of her bone and I did not want to rely on only porous fixation. We impacted our liner and reduced the knee and held it with axial loading. We released the tourniquet and achieved hemostasis where necessary. A dilute betadine solution (17.5mL in 500mL saline) was used to wash the joint and left to sit for 3 minutes. This was then irrigated out with copious amounts of pulse lavage. We sprinkled 1g vancomycin powder below the fascia and 1g above the fascia. We copiously irrigated the knee. We re-checked our seven parameters. We closed our capsular incision with a PDS style suture. We irrigated further. We closed the subcutaneous tissue with Vicryl suture and re-approximated the skin with gavin. We verified all lower extremity compartments were soft and compressible and that we had intact distal pulses. We wrapped the extremity in sterile Webril and mary bandage. The patient was transferred to the recovery room in stable condition. Condition Good Disposition Still a Patient ALEX LEYVA MD Jan 30, 2025 12:53
[2025-01-30] MEDS: POTASSIUM CHL 20 Meq TABLET PO ONE (13:12)
[2025-01-30] MEDS: HYDROmorphone HCL 2 MG/ML VL/or syr IV PRN (16:07)
[2025-01-30 18:35] LABS: Urine Protein, UAD TRACE (Negative)
[2025-01-31] VITALS (11 sets, daily range): BP systolic 97–159; BP diastolic 63–97; PULSE 60–101; RESP 16–20; TEMP 97.5–99.1; O2SAT 93–100
[2025-01-31 07:06] LABS: Anion Gap 9 (5-15); Carbon Dioxide 27 mmol/L (20-31); Chloride 103 mmol/L (98-107); Potassium 3.6 mmol/L (3.5-5.1); Sodium 139 mmol/L (136-145)
[2025-01-31 07:07] LABS: Calcium 8.7 mg/dL (8.7-10.4)
[2025-01-31 07:09] LABS: Hematocrit 34.5 % (36.0-46.0); Hemoglobin 11.8 g/dL (12.2-16.2); Mean Corpuscular Hemoglobin 33.1 pg (28.0-32.0); Mean Corpuscular Volume 96.9 fL (80.0-100.0); Nucleated Red Blood Cells % 0.0 %
[2025-01-31 07:12] LABS: BUN/Creatinine Ratio 25.9 (10.0-20.0); Blood Urea Nitrogen 15 mg/dL (9-23)
[2025-01-31 07:14] LABS: Glucose 113 mg/dL (74-106)
--- NOTE | 2025-01-31 07:40 | DVHPN2 ---
Progress Note Date Seen: Jan 31, 2025 Medical Necessity Reason Pt with a Central, PICC or Fol: No Subjective Patient reports: No new complaints Objective vital signs Vital Sign Date Time Temp Pulse Resp B/P (MAP) Pulse Ox O2 Delivery O2 Flow Rate FiO2 01/31/25 06:29 86 19 159/80 01/31/25 05:00 98.1 98 98.1 01/31/25 02:26 Facial BiPAP Mask 40 01/30/25 20:36 2 Total Intake and Output 01/30/25 01/30/25 01/31/25 15:00 23:00 07:00 Intake Total 50 ml 625 ml 900 ml Balance 50 ml 625 ml 900 ml medications Current Medications Medications Dose Ordered Sig/Juli Route Start Time Stop Time Status Last Admin Dose Admin Sodium Chloride 10 ml Q8HR IV 01/29/25 14:00 01/31/25 06:29 10 ML Acetaminophen/ Hydrocodone Bitart 1 tab Q4HP PRN PO 01/29/25 06:45 01/30/25 19:47 1 TAB Ondansetron HCl 4 mg Q6HP PRN IV 01/29/25 06:45 Cancel Docusate Sodium 100 mg Q12HR PO 01/29/25 10:00 01/30/25 21:34 100 MG Nitroglycerin 0.4 mg Q5MINP PRN SL 01/29/25 06:45 Morphine Sulfate 2 mg Q30M PRN IV 01/29/25 06:45 Cefepime HCl 50 ml @ 12.5 mls/hr DAILY IV 01/29/25 10:00 01/30/25 08:54 12.5 MLS/HR Aspirin 81 mg BID PO 01/30/25 07:00 01/30/25 21:33 81 MG Diphenhydramine HCl 25 mg Q4HP PRN IV 01/29/25 08:15 Ondansetron HCl 4 mg Q4HP PRN IV 01/29/25 08:15 Hydromorphone HCl 1 mg Q3HP PRN IV 01/29/25 10:45 01/31/25 06:29 1 MG Albuterol 2.5 mg Q4HPRN PRN NEB 01/29/25 10:45 Nicotine 1 patch DAILY TD 01/30/25 10:00 01/30/25 09:02 1 PATCH Lactated Ringer's 1,000 ml @ 75 mls/hr [id number] IV 01/30/25 11:00 Examination: GENERAL:Normal, MSK:Abnormal laboratory and microbiology Laboratory Tests 01/31/25 05:00 Test 01/31/25 05:00 Range/Units Serum Glucose 113 H 74-106 mg/dL Problem List/Assessment/Plan Problem List/Assessment/Plan 59 year old female who is s/p Right TKA POD 2 1. Pain control 2. WBAT RLE with use of walker 3. CPM as ordered 4. Physical therapy 5. prescriptions for percocet, colace, aspirin, keflex sent on 01/30/2025 to patients [facility] [address] 6. patient to follow up with Dr. Leyva on 02/14/2025 at 11:00 as scheduled 7. clear for discharge home from orthopedic standpoint with home health and in home PT (if a covered benefit) with the following discharge recommendations: p Total Knee Arthroplasty Discharge Instructions Wound Care 1. You will likely have a gel-type dressing over your wound, you may keep this on for 7-14 days after leaving the hospital until your first post-op visit, unless it becomes soiled or your skin becomes irritated. If a wound vac dressing is placed on your knee this is to be left in place for one week and will be changed as needed. After your remove the dressing or wound vac, the home health nurse may place clean dry dressing over your wound. Keep wound covered, clean and dry for two weeks. 2. Gayle will be removed during your initial post-op visit. If you have concerns about our wound, please call the office immediately. If nervous about staple removal can take pain pill one hour prior to appointment. 3. If there is drainage from your wound, change the dressing daily until it stops. If drainage lasts more than 10 days, call our office. 4. Low grade (up to 100 degrees) fever is common for the first week after surgery. You should take your temperature daily. If you have fevers of 101 or more, please call the office. Medication Management 1. You will be discharged with pain medication, a blood thinner (unless you were previously on a blood thinner prior to surgery) and stool softener. Please follow the instructions regarding these medications as provided by your nurse at the hospital upon discharge. 2. Blood clots in the leg are a known complication of surgery. It is very important that you take the medication to protect against clots. Depending on what you are discharged on typically it is Lovenox 40mg daily for 2 weeks or Aspirin 81mg twice daily for 4 weeks. After you finish this, you should then take baby Aspirin (81mg) once daily for 2 weeks. 3. You should restart all of your prescription medications once discharged from the hospital/surgery center unless specifically instructed otherwise. 4. Herbal supplements may be restarted 2 weeks after surgery. 5. If you have been given Coumadin as a blood thinner, please follow up with your project designer during the first two weeks after surgery to review medications and overall medical well-being. 6. Please note that narcotic pain medication may cause constipation. Please remember to take stool softeners (Colace) when using narcotics to help reduce the change of constipation. You should not use alcohol together with narcotic medication. Activity 1. CPM as ordered, goal is for 6 hours every day for the first 21 days of your recovery. Can break it up in to increments of 2-3 hours at a time. Most hospitals will start at 45 degrees of flexion, and increase by 5 degrees daily until the machine has been maxed out. The goal is to be at 90 degrees by first postop visit in 2 weeks. 2. No pool, jacuzzi, beach, [place] or bath for 6 weeks. Once all scabbing has fallen off patient can begin soaking and submerging knee under water for 15- minute periods at a time. 3. Physical therapy is critical in the first 2 weeks. If having issues with scheduling please inform office. 4. No running or jumping for 6 weeks. 5. Can walk and bear as much weight on the surgical leg as tolerated. No restrictions in regards to walking or standing. [facility] [place] Instructions 1. Driving is not permitted within the first 2 weeks. 2. Your first postoperative visit will take place 2 weeks after discharge. Please call the office once you are home from the hospital to arrange this appointment. 3. Antibiotic preventative treatment is required before dental or other invasive procedures. Please ask your surgeon about this at your first postoperative visit. If you experience chest pain, shortness of breath or severe painful calf swelling, go to the nearest emergency room to be evaluated. Please call our office once your situation is stabilized. Plan discussed with: Patient Date of Service: Jan 31, 2025 Billing Provider: JOSE LEYVA MD Common Visit Codes: NOT BILLABLE MATTEO ALLEN NP Jan 31, 2025 07:40
--- NOTE | 2025-01-31 11:14 | DVHDS2 ---
Discharge Summary Date of Admission Jan 29, 2025 at 06:39 Date of Discharge: Jan 31, 2025 Labs/Diagnostic Data: Laboratory Results Test 01/31/25 05:00 01/30/25 18:00 01/30/25 05:53 White Blood Count 11.3 10^3/uL (4.4-10.8) Red Blood Count 3.56 10^6/uL (4.0-5.20) Hemoglobin 11.8 g/dL (12.2-16.2) Hematocrit 34.5 % (36.0-46.0) Mean Corpuscular Volume 96.9 fL (80.0-100.0) Mean Corpuscular Hemoglobin 33.1 pg (28.0-32.0) Mean Corpuscular Hemoglobin Concent 34.1 g/dL (32.0-36.0) Red Cell Distribution Width 12.8 % (11.8-14.3) Platelet Count 226 10^3/uL (140-450) Mean Platelet Volume 9.2 fL (6.9-10.8) Neutrophils (%) (Auto) 72.7 % (37.0-80.0) Lymphocytes (%) (Auto) 14.1 % (10.0-50.0) Monocytes (%) (Auto) 12.0 % (0.0-12.0) Eosinophils (%) (Auto) 0.9 % (0.0-7.0) Basophils (%) (Auto) 0.3 % (0.0-2.0) Neutrophils # (Auto) 8.2 10 ^3/uL (1.6-8.6) Lymphocytes # (Auto) 1.6 10 ^3/uL (0.4-5.4) Monocytes # (Auto) 1.4 10 ^3/uL (0-1.3) Eosinophils # (Auto) 0.1 10 ^3/uL (0-0.8) Basophils # (Auto) 0 10 ^3/uL (0-0.2) Nucleated Red Blood Cells 0.0 % Sodium Level 139 mmol/L (136-145) Potassium Level 3.6 mmol/L (3.5-5.1) Chloride Level 103 mmol/L (98-107) Carbon Dioxide Level 27 mmol/L (20-31) Anion Gap 9 (5-15) Blood Urea Nitrogen 15 mg/dL (9-23) Creatinine 0.58 mg/dL (0.550-1.02) Glomerular Filtration Rate Calc 104 mL/min (>90) BUN/Creatinine Ratio 25.9 (10.0-20.0) Serum Glucose 113 mg/dL (74-106) Calcium Level 8.7 mg/dL (8.7-10.4) Urine Color Yellow (Yellow) Urine Clarity Clear (Clear) Urine pH 6.0 (5.0-9.0) Urine Specific [place] 1.029 (1.001-1.035) Urine Protein Trace (Negative) Urine Ketones Trace (Negative) Urine Blood Negative /uL (Negative) Urine Nitrite Negative (Negative) Urine Bilirubin Negative (Negative) Urine Urobilinogen Normal mg/dL (Negative) Urine Leukocyte Esterase Negative /uL (Negative) Urine RBC None seen /hpf (0 - 4) Urine Microscopic WBC 1 /HPF (0-5) Urine Squamous Epithelial Cells Few /hpf (<5) Urine Bacteria None seen /hpf (None Seen) Urine Mucus Few (None Seen) Urine Glucose Normal mg/dL (Normal) Total Bilirubin 0.7 mg/dL (0.2-1.0) Aspartate Amino Transferase (AST) 18 U/L (13-40) Alanine Aminotransferase (ALT) 14 U/L (7-40) Alkaline Phosphatase 46 U/L (46-116) Total Protein 6.5 g/dL (5.7-8.2) Albumin 4.3 g/dL (3.2-4.8) Other Laboratory Tests 01/31/25 05:00 Brief Hx & Hospital Course: see dictated note Condition at Discharge: Fair Final Diagnosis/Problems List Right knee osteoarthritis Discharge Disposition: Home Discharge Instruct/Medications Diet: Cardiac 2g Na,low cholest Activity: No Restrictions, As Tolerated Follow Up/Referral: fu with pcp/ortho Medications: resume home meds rest meds per ortho Miscellaneous Medications Budesonide-Formoterol Fumarate (Budesonide/Formoterol Fum 160-4.5 Mcg/Act), Unknown Dose IN, (Reported) Losartan Potassium & Hydrochlo (Losartan Potassium/Hydroc), Unknown Dose PO, (Reported) Discharge Statement: "Patient was advised to return to the ER or call 911 if any headaches, dizziness, shortness of breath, chest pain, abdominal pain, bleeding, fevers, or worsening of medical condition. Patient was counseled about treatment plan, medications, possible side effects, patientverbalized understanding. All questions were answered to the best of my ability. This discharge took greater then 30 minutes in planning, reviewing documentation, counseling the patient, and discussing with other team members." ASSESSMENT ASSESSMENT Assessment Right knee osteoarthritis Date of Service: Jan 31, 2025 Billing Provider: URMILA TOBIN MD Common Visit Codes: [id number] DISCH DAY >30min URMILA TOBIN MD Jan 31, 2025 11:14
--- NOTE | 2025-01-31 11:56 | DVHDS ---
DATE OF DISCHARGE: 01/31/2025 HISTORY OF PRESENT ILLNESS: The patient is a 59-year-old lady who is admitted after she underwent surgery on the right knee for DJD of the knee and has history of hypertension, asthma, and sleep apnea. HOSPITAL COURSE: The patient has done well postoperatively. Chest x-ray showed mild vascular congestion with atelectasis. The patient has now been ambulating with physical therapy and is on room air. The patient will be discharged home to resume her home medications and follow up with the primary and Orthopedics. The patient will also have home health for physical therapy, home walker, and a CPM machine. FINAL DIAGNOSES: * Hypertension. * Obesity. * Sleep apnea. * Tobacco abuse. * COPD/asthma. * Status post right knee surgery for DJD of the knee. Time spent in discharge planning and review of plan with the patient and nursing was 37 minutes. MD TAD Ko/NATHAN TID: [id number] RECEIPT: [id number]
[2025-01-31] MEDS: ONDANSETRON HCL 4 MG/2 ML VIAL IV PRN (12:04)
[2025-02-01] VITALS (11 sets, daily range): BP systolic 112–146; BP diastolic 61–88; PULSE 11–116; RESP 18–20; TEMP 98–98.8; O2SAT 92–97
[2025-02-01 06:39] LABS: Hematocrit 34.1 % (36.0-46.0); Hemoglobin 11.6 g/dL (12.2-16.2)
--- NOTE | 2025-02-01 14:49 | DVHPN2 ---
Progress Note Date Seen: Feb 01, 2025 Medical Necessity Reason Pt with a Central, PICC or Fol: No Subjective Patient reports: No new complaints Review of Systems: HEENT:Normal, CVS:Normal, RESPIRATORY:Normal, GI:Normal, :Normal, MSK:Normal, NEURO:Normal Objective vital signs Vital Sign Date Time Temp Pulse Resp B/P (MAP) Pulse Ox O2 Delivery O2 Flow Rate FiO2 02/01/25 14:06 94 20 121/61 95 02/01/25 13:00 98.0 98.0 02/01/25 07:32 Room Air 0.0 02/01/25 07:32 21 Total Intake and Output 01/31/25 01/31/25 02/01/25 15:00 23:00 07:00 Intake Total 50 ml 780 ml 300 ml Balance 50 ml 780 ml 300 ml medications Current Medications Medications Dose Ordered Sig/Juli Route Start Time Stop Time Status Last Admin Dose Admin Sodium Chloride 10 ml Q8HR IV 01/29/25 14:00 02/01/25 05:16 10 ML Acetaminophen/ Hydrocodone Bitart 1 tab Q4HP PRN PO 01/29/25 06:45 02/01/25 12:25 1 TAB Ondansetron HCl 4 mg Q6HP PRN IV 01/29/25 06:45 Cancel Docusate Sodium 100 mg Q12HR PO 01/29/25 10:00 02/01/25 08:11 100 MG Nitroglycerin 0.4 mg Q5MINP PRN SL 01/29/25 06:45 Morphine Sulfate 2 mg Q30M PRN IV 01/29/25 06:45 Cefepime HCl 50 ml @ 12.5 mls/hr DAILY IV 01/29/25 10:00 02/01/25 08:12 12.5 MLS/HR Aspirin 81 mg BID PO 01/30/25 07:00 02/01/25 08:11 81 MG Diphenhydramine HCl 25 mg Q4HP PRN IV 01/29/25 08:15 Ondansetron HCl 4 mg Q4HP PRN IV 01/29/25 08:15 01/31/25 16:19 4 MG Hydromorphone HCl 1 mg Q3HP PRN IV 01/29/25 10:45 02/01/25 08:06 1 MG Albuterol 2.5 mg Q4HPRN PRN NEB 01/29/25 10:45 Nicotine 1 patch DAILY TD 01/30/25 10:00 02/01/25 08:18 1 PATCH Lactated Ringer's 1,000 ml @ 75 mls/hr [id number] IV 01/30/25 11:00 Examination: GENERAL:Normal, HEENT:Normal, NECK:Normal, LUNGS:Normal, CVS:Normal, ABDOMEN:Normal, MSK:Normal, MSK:Abnormal (right knee dressing), SKIN:Normal, NEURO:Normal, :Normal laboratory and microbiology Laboratory Tests 02/01/25 04:35 01/31/25 05:00 Test 01/31/25 05:00 Range/Units Serum Glucose 113 H 74-106 mg/dL Problem List/Assessment/Plan Problem List/Assessment/Plan * Hypertension for which her blood pressure will be monitored. * Obesity. * Sleep apnea for which she will be placed on a CPAP at night. * Tobacco abuse for which the patient has been advised to quit smoking and a nicotine patch will be placed - time spent was 11 mins * COPD/asthma for which she will be placed on p.r.n. albuterol, chest xray * Status post right knee surgery for DJD of the knee for which she will be placed on pain medication and receive physical therapy. advance care planning- full code- time spent 17 mins dc planning to snf Plan discussed with: Patient Date of Service: Feb 01, 2025 Billing Provider: URMILA TOBIN MD Common Visit Codes: [id number] INP/OBS CARE(HIGH) URMILA TOBIN MD Feb 01, 2025 14:49
[2025-02-02] VITALS (8 sets, daily range): BP systolic 121–132; BP diastolic 71–91; PULSE 71–88; RESP 18–20; TEMP 98–98.7; O2SAT 94–98
--- NOTE | 2025-02-02 16:32 | DVHPN2 ---
Subjective I am assuming the care of the patient from today onwards patient is being discharged to group home facility for rehab as she says had a right knee surgery. Changes from previous H/P or p: No Changes Objective Vitals Vital Signs Date Time Temp Pulse Resp B/P (MAP) Pulse Ox O2 Delivery O2 Flow Rate FiO2 02/02/25 13:00 98.0 85 18 126/78 (94) 94 98.0 02/02/25 08:09 Room Air* 0 21 Intake/Output Intake and Output 02/02/25 07:00 Intake Total 1800 ml Balance 1800 ml Intake Oral 1750 ml IV Total 50 ml # Voids 8 Exam HEENT pupils are reactive Neck is supple CV is S1-S2 regular rate and rhythm Respiratory diminished breath sounds bases GI positive bowel sound Extremity no edema SSN/SSBN [employer] no motor deficit Medications Current Medications Medications Dose Ordered Sig/Juli Route Start Time Stop Time Status Last Admin Dose Admin Sodium Chloride 10 ml Q8HR IV 01/29/25 14:00 02/02/25 13:48 10 ML Acetaminophen/ Hydrocodone Bitart 1 tab Q4HP PRN PO 01/29/25 06:45 02/02/25 13:47 1 TAB Ondansetron HCl 4 mg Q6HP PRN IV 01/29/25 06:45 Cancel Docusate Sodium 100 mg Q12HR PO 01/29/25 10:00 02/02/25 09:55 100 MG Nitroglycerin 0.4 mg Q5MINP PRN SL 01/29/25 06:45 Morphine Sulfate 2 mg Q30M PRN IV 01/29/25 06:45 Cefepime HCl 50 ml @ 12.5 mls/hr DAILY IV 01/29/25 10:00 02/02/25 09:55 12.5 MLS/HR Aspirin 81 mg BID PO 01/30/25 07:00 02/02/25 09:55 81 MG Diphenhydramine HCl 25 mg Q4HP PRN IV 01/29/25 08:15 Ondansetron HCl 4 mg Q4HP PRN IV 01/29/25 08:15 01/31/25 16:19 4 MG Hydromorphone HCl 1 mg Q3HP PRN IV 01/29/25 10:45 02/02/25 09:56 1 MG Albuterol 2.5 mg Q4HPRN PRN NEB 01/29/25 10:45 Nicotine 1 patch DAILY TD 01/30/25 10:00 02/01/25 08:18 1 PATCH Laboratory Results Laboratory Tests 01/31/25 05:00 02/01/25 04:35 Urinalysis Test 01/30/25 18:00 Urine Color Yellow (Yellow) Urine Clarity Clear (Clear) Urine pH 6.0 (5.0-9.0) Urine Specific [place] 1.029 (1.001-1.035) Urine Protein Trace (Negative) H Urine Ketones Trace (Negative) Urine Blood Negative /uL (Negative) Urine Nitrite Negative (Negative) Urine Bilirubin Negative (Negative) Urine Urobilinogen Normal mg/dL (Negative) Urine Leukocyte Esterase Negative /uL (Negative) Urine RBC None seen /hpf (0 - 4) Urine Microscopic WBC 1 /HPF (0-5) Urine Squamous Epithelial Cells Few /hpf (<5) Urine Bacteria None seen /hpf (None Seen) Urine Mucus Few (None Seen) Urine Glucose Normal mg/dL (Normal) Assessment/Plan Assessment/Plan 59-year-old female who just had right knee surgery for degenerative joint disease of the right knee 1. Hypertension controlled 2. Morbid obesity classII, diet weight reduction Psych consult 3. Chronic tobacco use disorder 4. COPD/asthma currently not in exacerbation 5. Status post right total knee arthroplasty for degenerative joint disease of the right knee -discharge plan to group home facility for pain management as well as physical therapy. Plan discussed with: Patient Date of Service: Feb 02, 2025 Billing Provider: MARCOS JOSEPH MD Common Visit Codes: [id number] INP/OBS CARE(MOD) MARCOS JOSEPH MD Feb 02, 2025 16:32
== END 2025-02-02 18:40 | DRG 326 ==
LOC: SUR 06:07 → OVERFLOW 06:39 → TELE-WESTW 10:48 → WEST WING 01-30 11:21
PROVIDERS: ADMIT Internal Medicine; ATTEND Internal Medicine
PROC: 8E0YXBZ Computer Assisted Procedure of Lower Extremity (ICD-10-PCS; 2025-01-29)
PROC: 5A09357 Assistance with Respiratory Ventilation, Less than 24 Consecutive Hours, Continuous Positive Airway Pressure (ICD-10-PCS; 2025-01-29)
PROC: 0SRC0J9 Replacement of Right Knee Joint with Synthetic Substitute, Cemented, Open Approach (ICD-10-PCS; principal; 2025-01-29 07:53)
PROC: 5A09357 Assistance with Respiratory Ventilation, Less than 24 Consecutive Hours, Continuous Positive Airway Pressure (ICD-10-PCS; 2025-01-30)
PROC: 5A09357 Assistance with Respiratory Ventilation, Less than 24 Consecutive Hours, Continuous Positive Airway Pressure (ICD-10-PCS; 2025-01-31)
PROC: 5A09357 Assistance with Respiratory Ventilation, Less than 24 Consecutive Hours, Continuous Positive Airway Pressure (ICD-10-PCS; 2025-02-02)
DX: M17.11 Unilateral primary osteoarthritis, right knee (principal); E66.01 Morbid (severe) obesity due to excess calories; J44.89 Other specified chronic obstructive pulmonary disease; I10 Essential (primary) hypertension; F17.210 Nicotine dependence, cigarettes, uncomplicated; G47.30 Sleep apnea, unspecified; Z80.8 Family history of malignant neoplasm of other organs or systems; Z81.8 Family history of other mental and behavioral disorders; Z80.41 Family history of malignant neoplasm of ovary; Z82.0 Family history of epilepsy and other diseases of the nervous system; Z82.3 Family history of stroke; Z82.49 Family history of ischemic heart disease and other diseases of the circulatory system; Z82.62 Family history of osteoporosis; Z82.5 Family history of asthma and other chronic lower respiratory diseases; Z83.3 Family history of diabetes mellitus; Z80.3 Family history of malignant neoplasm of breast; Z80.1 Family history of malignant neoplasm of trachea, bronchus and lung; Z80.0 Family history of malignant neoplasm of digestive organs; Z71.6 Tobacco abuse counseling; Z68.36 Body mass index [BMI] 36.0-36.9, adult
CPT/HCPCS: 36415; 71045; 73562; 80048; 80053; 81001; 85014; 85018; 85025; 86850; 86900; 86901; 94660; 97110; 97116; 97163; 97530; G0378; J0131; J1100; J2250; J2405; J2704; J3490